=== PATIENT | male | born 1950 | race Caucasian/White ===

== ENCOUNTER 2017-07-01 09:17 | Outpatient (CLI) | payer MEDICARE, BC ==
[2017-07-01 10:39] LABS: #Eosinphils 0.1 thou/uL (0.0-0.7); #Lymphocytes 2.2 thou/uL (1.20-3.40); #Monocytes 0.7 thou/uL (0.11-0.59); #Neutrophils 4.4 thou/uL (1.40-6.50); %Basophils 0.2 % (0.0-1.0); %Eosinophils 1.4 % (0.0-10.0); %Lymphocytes 29.5 % (21.0-51.0); %Monocytes 9.1 % (0.0-10.0); Hematocrit 48.3 % (42.0-52.0); Mean Platelet Volume 6.9 fL (7.4-10.4); Red Blood Cell (RBC) Count 5.33 mill/uL (4.70-6.10); White Blood Cell (WBC) Count 7.3 thou/uL (4.8-10.8)
[2017-07-01 11:04] LABS: Anion Gap 10 mmol/L (10-20); BUN (Urea Nitrogen) 24 mg/dL (8.4-25.7); Calc. Creatinine Clearance 0 mL/min (70-130); Calcium 9.7 mg/dL (7.8-10.44); Carbon Dioxide 29 mmol/L (23-31); Chloride 104 mmol/L (98-107); Estimated GFR-MDRD 77
--- NOTE | 2017-07-01 12:25 | EKG ---
Test Reason : Blood Pressure : / mmHG Vent. Rate : 090 BPM Atrial Rate : 117 BPM P-R Int : 000 ms QRS Dur : 142 ms QT Int : 384 ms P-R-T Axes : 000 -71 008 degrees QTc Int : 469 ms Atrial fibrillation with a competing junctional pacemaker Left axis deviation Right bundle branch block Abnormal ECG When compared with ECG of 23-AUG-2000 13:55, Atrial fibrillation has replaced Sinus rhythm Right bundle branch block is now Present Confirmed by JHONY MG ([id number]) on 07/01/2017 12:25:44 PM Referred By: ROYCE Confirmed By:JHONY MG
== END 2017-07-01 09:18 | disposition home or self-care (01) ==
LOC: LABBT 09:17
PROVIDERS: ATTEND Surgery
DX: Z01.818 Encounter for other preprocedural examination (principal); K40.90 Unilateral inguinal hernia, without obstruction or gangrene, not specified as recurrent
CPT/HCPCS: 80048; 85025; 93005; 93010

== ENCOUNTER 2017-07-11 05:59 | Emergency (ER) | payer MEDICARE, BC ==
[2017-07-11 06:38] LABS: #Basophils 0.1 thou/uL (0.0-0.2); #Eosinphils 0.1 thou/uL (0.0-0.7); #Lymphocytes 1.6 thou/uL (1.20-3.40); #Neutrophils 9.4 thou/uL (1.40-6.50); %Lymphocytes 13.4 % (21.0-51.0); %Monocytes 8.4 % (0.0-10.0); Hematocrit 49.5 % (42.0-52.0); Mean Platelet Volume 6.6 fL (7.4-10.4); Red Blood Cell (RBC) Count 5.65 mill/uL (4.70-6.10); White Blood Cell (WBC) Count 12.3 thou/uL (4.8-10.8)
[2017-07-11 06:46] LABS: ALT (SGPT) 18 U/L (8-55); AST (SGOT) 17 U/L (5-34); Alkaline Phosphatase 79 U/L (40-150); Anion Gap 19 mmol/L (10-20); BUN (Urea Nitrogen) 14 mg/dL (8.4-25.7); Bilirubin, Total 4.6 mg/dL (0.2-1.2); Calc. Creatinine Clearance 0 mL/min (70-130); Calcium 9.6 mg/dL (7.8-10.44); Carbon Dioxide 19 mmol/L (23-31); Chloride 104 mmol/L (98-107); Estimated GFR-MDRD Greater than 90; Globulin 3.1 g/dL (2.4-3.5); Protein, Total 7.3 g/dL (5.8-8.1)
[2017-07-11] MEDS ORDERED: Clindamycin/D5W 600 mg/50 ml Premix Bag ONE (06:49)
== END 2017-07-11 08:00 | disposition home or self-care (01) ==
LOC: SCSER 05:59
DX: L05.01 Pilonidal cyst with abscess (principal); I48.91 Unspecified atrial fibrillation; I10 Essential (primary) hypertension; E11.9 Type 2 diabetes mellitus without complications; Z79.01 Long term (current) use of anticoagulants; Z79.84 Long term (current) use of oral hypoglycemic drugs; Z79.899 Other long term (current) drug therapy
CPT/HCPCS: 10080; 36416; 80053; 83605; 85025; 93005; 96365; 96375; J3490

== ENCOUNTER 2017-07-22 11:25 | Day surgery (SDC) | payer MEDICARE, BC ==
[2017-07-01 09:36] VITALS: BMI 34.7
[2017-07-22] MEDS ORDERED: Fentanyl 100 MCG/2 ML VIAL ONE ×4 (12:12→15:40)
[2017-07-22] MEDS ORDERED: Bupivacaine/Epinephrine 0.25% 30 ML VIAL ONE (12:16)
[2017-07-22] MEDS ORDERED: CEFAZOLIN/Water 2 GM/20 ML SYRINGE ONE (12:41)
[2017-07-22] MEDS ORDERED: Ondansetron HCl/PF 4 MG/2 ML Vial IVP PRN (15:10)
[2017-07-22] MEDS ORDERED: Non-Formulary Medication 1 EACH PO PRN (15:10)
[2017-07-22] MEDS ORDERED: Promethazine HCl 25 MG/ML VIAL IM/IV PRN (15:10)
[2017-07-22] MEDS ORDERED: Morphine 4 MG/ML VIAL ONE (16:00)
[2017-07-22] MEDS ORDERED: Promethazine HCl 25 MG/ML VIAL ONE (16:01)
[2017-07-22] MEDS ORDERED: HYDROcodone/Acetaminophen 5/325 mg Tablet ONE (16:32)
[2017-07-22] MEDS ORDERED: PHENYLEPHRINE-NS 100 MCG/ML 10 ML SYRINGE ONE (17:06)
[2017-07-22] MEDS ORDERED: Esmolol 100 MG/10 ML VIAL ONE (17:06)
[2017-07-22] MEDS ORDERED: Ondansetron HCl/PF 4 MG/2 ML Vial ONE (17:06)
[2017-07-22] MEDS ORDERED: Glycopyrrolate 0.2 MG/ML 5 ML SYRINGE ONE (17:06)
[2017-07-22] MEDS ORDERED: Lidocaine 1% PF 5 ML VIAL ONE (17:06)
[2017-07-22] MEDS ORDERED: PROPOFOL 200 MG/20 ML VIAL ONE (17:06)
--- NOTE | 2017-07-26 15:10 | OP ---
DATE OF PROCEDURE: 07/22/2017 PREOPERATIVE DIAGNOSIS: Left inguinal hernia. POSTOPERATIVE DIAGNOSIS: Left inguinal hernia. PROCEDURE: Laparoscopic robot left inguinal hernia repair with mesh, ProGrip. SURGEON: Michael Guzman M.D. ANESTHESIA: General. ESTIMATED BLOOD LOSS: Minimal. COMPLICATIONS: None. SPECIMEN: None. FINDINGS: Left inguinal hernia. TECHNIQUE: The patient was taken to the operating room and placed supine on the table. After genera l anesthetic was obtained, Henao was placed. The abdomen was shaved, prepped and draped in a sterile fashion. Curved incision made above the umbilicus. Cautery was used to dissect down to and score t he fascia. Abdominal cavity was entered bluntly using a 12-mm Ethicon trocar. High-flow pneumoperit oneum was obtained. Left and right abdominal 8 mm robot trocars were placed. The patient was placed in Trendelenburg position and all ports were docked to the robot. The peritoneum was taken down in the left lower quadrant into the preperitoneal space. Preperitoneal space down in the left groin was fully dissected exposing pubic tubercle medially, iliopectineal line anterior superior iliac crest l aterally. Indirect hernia sac was dissected out of the indirect hernia, back high up on the peritone um. There is no direct hernia. ProGrip mesh brought into the left lower quadrant incision and media l lid aspect was placed over the pubic tubercle medially, the mesh was unraveled to fully cover the d irect, indirect and femoral areas. Peritoneum was reapproximated using running 3-0 Stratafix. Port sites were infiltrated using local anesthetic. All ports were removed under camera visualization. P neumoperitoneum was let down. PDS was used to close the fascial defect above the umbilicus. All inc isions were irrigated and closed using 4-0 Monocryl and Dermabond. The patient was en route to [facility] in stable condition. All instrument counts, needle counts, and lap counts were correct.
== END 2017-07-22 18:55 | disposition home or self-care (01) ==
LOC: EDBD → SDC 11:25
PROVIDERS: ATTEND Surgery
PROC: 0YU64JZ Supplement Left Inguinal Region with Synthetic Substitute, Percutaneous Endoscopic Approach (ICD-10-PCS; principal; 2017-07-22)
DX: K40.90 Unilateral inguinal hernia, without obstruction or gangrene, not specified as recurrent (principal); Z79.01 Long term (current) use of anticoagulants; Z79.84 Long term (current) use of oral hypoglycemic drugs; Z79.899 Other long term (current) drug therapy; Z88.2 Allergy status to sulfonamides; Z96.653 Presence of artificial knee joint, bilateral; Z90.89 Acquired absence of other organs; Z98.890 Other specified postprocedural states
CPT/HCPCS: 96374; 96375; J2001; J2270; J2405; J2550; J2704; J3010

== ENCOUNTER 2017-12-16 21:02 | Emergency (ER) | payer MEDICARE, BC ==
[2017-12-16] MEDS ORDERED: Clindamycin 150 MG CAP ONE (21:37)
== END 2017-12-16 21:45 | disposition home or self-care (01) ==
LOC: SCSER 21:02
DX: L03.116 Cellulitis of left lower limb (principal); I48.91 Unspecified atrial fibrillation; E11.9 Type 2 diabetes mellitus without complications; I10 Essential (primary) hypertension
CPT/HCPCS: 99283